=== PATIENT | male | born 2000 | race Caucasian/White ===

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

== ENCOUNTER 2024-05-31 00:43 | Emergency (ER) | payer BC, SELFPAY ==
--- NOTE | ~2024-05-31 | XR_ITS ---
CLINICAL HISTORY: rigght hand pain after punching wall 3 view right hand Comparison: None Findings: There is a transverse fracture through the distal 5th metacarpal. Moderate volar angulation of the distal fracture fragment. There is no displacement. No significant arthritic change. No erosions. No radiopaque foreign body. IMPRESSION: Angulated transverse fracture through the distal 5th metacarpal. This document has been electronically signed by: Juancarlos Rome MD on 05/31/2024 02:05:19
[2024-05-31 00:52] VITALS: BP 130/80; PULSE 95; RESP 20; TEMP 36.9; O2SAT 100; BMI 22.1
[2024-05-31] MEDS: Acetaminophen 325 MG TABLET 650 MG PO (01:41)
--- NOTE | 2024-05-31 01:41 | PC.NURSE ---
+fx on xray. Provider to bedside for splint application, pt tolerated well. Medicated per MAR, awaiting dc home.
--- NOTE | 2024-05-31 01:44 | ED.EXTPRO ---
HPI - Extremity Problem General Chief complaint: Extremity Injury, Upper Stated complaint: right hand swollen - punched the wall Time Seen by Provider: 05/31/24 01:24 Source: patient, RN notes reviewed and old records reviewed Mode of arrival: ambulatory Limitations: no limitations History of Present Illness ED Provider: Jeffy SWEENEY Narrative: 23-year-old male who is right-hand dominant presents for evaluation of right hand pain. Patient punched a wall around 10:00 p.m., 3 hours prior to arrival. He has pain over the right ulnar side of the hand His pain is 7/10 He denies any other complaints or injuries Related Data Allergies Allergy/AdvReac Type Severity Reaction Status Date / Time No Known Allergies Allergy Verified 05/31/24 00:53 Review of Systems Musculoskeletal: Musculoskeletal: Reports arthralgias, Reports joint swelling and Reports limited range of motion PMFSH Social History Social History Alcohol intake: never Patient Tobacco Use Status: Never used Tobacco Smoked in Last 30 Days: No Use of substances other than those prescribed or required for medical reasons: No Advance Directives: No Advance Directives Information Provided: Yes Do you have a plan to hurt others: No Plan Physical Exam Vital Signs: Vital Signs: Last Vital Signs Temp 98.4 F 05/31/24 00:52 Pulse 95 05/31/24 00:52 Resp 20 05/31/24 00:52 BP 130/80 05/31/24 00:52 Pulse Ox 100 05/31/24 00:52 O2 Del Method Room Air 05/31/24 00:52 BMI result Body Mass Index 22.1 Const: General: healthy appearing, comfortable, no acute distress, alert and awake Nutritional Appearance: well nourished Orientation/consciousness: patient oriented x3 HEENT: Head: Yes normocephalic and Yes atraumatic Eyes: Eyelids: Yes eyelids normal Conjunctivae: conjunctivae normal Sclerae: sclerae normal Corneas: corneas normal Pupils: Equal, round and reactive pupils present EOM: EOMs intact bilaterally Neck: Neck: Yes full ROM Resp: Effort & Inspection: normal respiratory effort, able to speak in complete sentences and not labored Skin: General skin exam: elasticity normal Neuro: General: patient oriented x3 Cranial nerves: Yes Equal, round and reactive pupils present and Yes Bilaterally intact EOM present Cognition (Neuro): normal cognition Extrem: Other: There was no edema or tenderness to the right wrist. There is good range of motion of the right wrist. There is marked edema of the right 5th metacarpal just proximal to the MCP joint. This area is exquisitely tender to palpation. He was still sensation and capillary refill is intact. Medications Administered Discontinued Medications Generic Name Dose Route Start Last Admin Trade Name Alena PRN Reason Stop Dose Admin Acetaminophen 650 mg 05/31/24 01:32 05/31/24 01:41 Acetaminophen 325 Mg Tablet PO 05/31/24 01:33 650 mg ONCE ONE Administration Medical Decision Making Medical Decision Making MDM Narrative: There is a boxer's fracture of the neck of the right 5th metacarpal, minimally displaced. See procedure note for ulnar gutter splinting. Neurovascular status is intact. Patient will be discharged to follow up with hand surgery Differential Diagnosis Differential Diagnoses: The differential diagnosis associated with the presentation includes Hand fracture Contusion Dislocation Hand sprain Hematoma Independent Interpretation I performed an independent interpretation of an: Plain X-Ray Interpretation: Minimally displaced fracture of the right 5th metacarpal neck Procedures Orthopedic Splinting/Casting Injury #1: Side: right Upper Extremity Injury Location: hand Upper Extremity Immobilizer: ulnar gutter Additional Comments: Neurovascular status intact postprocedure Discharge Plan Discharge Clinical Impression: Fracture of fifth metacarpal bone of right hand Patient Disposition: Home, Self-Care Instructions: Hand Fracture (ED) Additional Instructions: You have called a boxer's fracture. This is a fracture of the 5th metacarpal on the right hand. You had a splint applied. Keep this clean and dry. Follow-up with Orthopedics, Dr. Kathy Coon, call tomorrow to make an appointment. You may use ibuprofen/Tylenol for pain Referrals: Kathy Coon MD [Physician] - (right 5th metacarpal fracture) Stand Alone Forms: Work/School Release Print Language: Fijian
[2024-05-31 02:17] VITALS: BP 130/80; PULSE 95; RESP 20; TEMP 36.9; O2SAT 100
== END 2024-05-31 02:18 | disposition home or self-care (01) ==
PROVIDERS: Emergency Provider Internal Medicine
DX: S62.336A Displaced fracture of neck of fifth metacarpal bone, right hand, initial encounter for closed fracture (principal); W22.09XA Striking against other stationary object, initial encounter; Y93.9 Activity, unspecified; Y92.9 Unspecified place or not applicable; Y99.9 Unspecified external cause status
CPT/HCPCS: 29125; 73130; 99283; 99284

== ENCOUNTER → 2024-05-31 00:57 | Outpatient (BNV) | payer SELFPAY | PROVIDERS: Emergency Provider Internal Medicine; Visit Provider Radiology Diagnostic Radiology | DX: S62.306A Unspecified fracture of fifth metacarpal bone, right hand, initial encounter for closed fracture (principal) | CPT/HCPCS: 73130 ==

== ENCOUNTER 2024-06-04 08:41 | Emergency (ER) | payer SELFPAY ==
--- NOTE | 2024-06-04 09:49 | ED.UPPEXIN ---
HPI - Extremity Injury (Upper) General Chief Complaint: Extremity Injury, Upper Stated Complaint: wound check Related Data Allergies Allergy/AdvReac Type Severity Reaction Status Date / Time No Known Allergies Allergy Verified 06/04/24 09:54 PMFSH Social History Social History Alcohol intake: never Patient Tobacco Use Status: Never used Tobacco Advance Directives: No Advance Directives Information Provided: No Do you have a plan to hurt others: No Plan Physical Exam Vital Signs: Vital Signs: Last Vital Signs Temp 98 F 06/04/24 09:50 Pulse 76 06/04/24 09:50 Resp 16 06/04/24 09:50 BP 137/80 06/04/24 09:50 Pulse Ox 99 06/04/24 09:50 O2 Del Method Room Air 06/04/24 09:50 BMI result Body Mass Index 21.8 Course Course Course Narrative: This is a Rapid Medical Exam performed in triage by Jaida Blunt PA-C. Full HPI, ROS and PE to be performed by primary ED provider. 23 yo M w/PMHx 5th metacarpal fx presenting to the ED c/o needing new splint. States splint felt too tight last night so he removed it. Was seen & tx in our ED on 05/31/24 & Dx w/fracture after punching wall PE: +loose splint noted to RUE Plan: Needs new splint Discharge Plan Discharge Clinical Impression: Aftercare for cast or splint check or change Patient Disposition: Left Without Being Seen Interventions: LWBS Worksheet Last Done: 06/04/24 18:31 Discharge Date/Time: 06/04/24 19:22
[2024-06-04 09:50] VITALS: BP 137/80; PULSE 76; RESP 16; TEMP 36.6; O2SAT 99; BMI 21.8
== END 2024-06-04 19:22 | disposition left against medical advice (07) ==
LOC: HO.ED 19:19
PROVIDERS: Emergency Provider Emergency Medicine
DX: Z48.00 Encounter for change or removal of nonsurgical wound dressing (principal)
CPT/HCPCS: 99281

== ENCOUNTER 2024-06-07 08:21 | Outpatient (REF) | payer MEDICARE, MEDICAID, SELFPAY ==
--- NOTE | ~2024-06-07 | XR_ITS ---
EXAMINATION: XR HAND 3 OR MORE VIEWS RIGHT HISTORY: M79.641 - Pain in right hand COMPARISON: Comparison is made with the prior examination dated 05/31/2024. FINDINGS: Three views of the right hand are submitted. Osseous mineralization is normal. Again seen is a fracture of the 5th metacarpal neck. The fracture lines remain visible. The joint spaces are preserved. The soft tissues are unremarkable. XR/XR hand RT min 3V IMPRESSION: Fracture of the 5th metacarpal neck without change. Electronically signed by: Jeremy Dickinson MD 06/07/2024 10:45 AM EDT
== END 2024-06-07 08:22 | disposition home or self-care (01) ==
LOC: HO.HOSX 08:21
DX: S62.336A Displaced fracture of neck of fifth metacarpal bone, right hand, initial encounter for closed fracture (principal)
CPT/HCPCS: 26600; 73130

== ENCOUNTER 2024-06-07 09:23 | Outpatient (AMB) | payer BC, SELFPAY ==
--- NOTE | 2024-06-07 09:38 | MHC.OFFVIS ---
Vital Signs 06/07/24 09:41 Height 5 ft 9 in Weight 147 lb BMI 21.7 Handedness Right Intake Visit Reasons: FC- Right fifth metacarpal fx DOI 05/30/24 Intake Note: Raudel is a 23 year old right hand dominant male who presents today for a fracture care visit for his right hand. Patient reports that he punched a wall on 05/31/24, he [place] [facility] [place] the [place]. While at the ED he was placed in an ulnar gutter splint for a Right 5th MC Fracture. He states his pain is a 5/10 on the pain scale. Denies numbness and tingling in his fingers. Patient has tried tylenol with relief. Allergies No Known Allergies Allergy (Verified 06/07/24 09:40) HPI HPI FC- Right fifth metacarpal fx DOI 05/30/24: Details: Raudel is a 23 year old right hand dominant male who presents today for a fracture care visit for his right hand. Patient reports that he punched a wall on 05/31/24, he was [place] [facility] [place] the [place]. While at the ED he was placed in an ulnar gutter splint for a Right 5th MC Fracture. He states his pain is a 5/10 on the pain scale. Denies numbness and tingling in his fingers. Patient has tried tylenol with relief. 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 Neuro: Normal sensation of the tips of all digits of the right hand at this time Vascular: Cap refill brisk Pain: Mild to moderate tenderness to palpation of the right 5th metacarpal neck in the area of the fracture ROM: Patient was able to flex and extend the 1st through 4th digits of the right hand without difficulty Skin: No lacerations or abrasions. General: Resolving ecchymosis No erythema, or evidence of infection. Psych: Appears grossly normal Affect normal Attitude cooperative Office Procedures AMB Fracture Care Details: Right 5th metacarpal neck fracture Fracture Billing Code: Fracture Billing Code Casting/Splints 64020-Rxmf/Wrist Cast Application Procedure code (CPT) selection complete Results Reviewed Results Reviewed: X-rays obtained in the office today and independently reviewed by me, Hans Griffith PA-C, demonstrate minimally displaced fracture of the right 5th metacarpal neck. Assessment & Plan Assessment & Plan (1) Fracture of fifth metacarpal bone of right hand: Code(s): S62.306A - Unspecified fracture of fifth metacarpal bone, right hand, initial encounter for closed fracture Category: Medical Plan 1. Minimally displaced right 5th metacarpal neck fracture Date of injury 05/30/24 Patient is educated about this condition Patient was educated about the typical recovery course At this time, patient was informed that he will require no surgical intervention, as his fracture is minimally displaced Patient was placed into a short-arm ulnar gutter cast Patient was educated on proper cast care and precautions Patient was educated he will have a strict 2 lb weight limit in the right hand, and must keep the cast clean, dry, intact Patient states understanding of this and is amenable to this plan Patient will follow-up in 3 weeks, out of cast, with repeat x-rays, sooner with any acute concerns Orders: Orders XR hand RT min 3V Today M79.641 - Pain in right hand Coding Level of Care Code New Pt Level 3 (00944) Diagnoses Fracture of fifth metacarpal bone of right hand S62.306A CPT Codes Fracture Care - Fracture Billing Code: Fracture Billing Code ([id number]) Casting - CPT: 24610-Vcke/Wrist Cast Application ([id number])
[2024-06-07 09:41] VITALS: BMI 21.7
== END 2024-06-07 09:52 | disposition home or self-care (01) ==
LOC: HO.HOS 09:24
DX: S62.306A Unspecified fracture of fifth metacarpal bone, right hand, initial encounter for closed fracture (principal)
CPT/HCPCS: 26600; 99203

== ENCOUNTER → 2024-06-07 09:28 | Outpatient (BNV) | payer BC, SELFPAY | PROVIDERS: Visit Provider Radiology Diagnostic Radiology | DX: M79.641 Pain in right hand (principal) | CPT/HCPCS: 73130 ==

== ENCOUNTER 2024-07-06 08:14 | Outpatient (REF) | payer BC, SELFPAY ==
--- NOTE | ~2024-07-06 | XR_ITS ---
EXAMINATION: XR HAND, RIGHT CLINICAL INFORMATION: M79.641 - Pain in right hand COMPARISON: June 07, 2024. TECHNIQUE: PA, lateral, and oblique views of the right hand. FINDINGS: Persistent lucency and the fragment fractures of the distal fifth metacarpal. Persistent volar angulation of the head of the fifth metacarpal. No callus formation. Degenerative changes in the greater carpal joint. Carpal bones are intact. Phalanges are intact with normal alignment. XR/XR hand RT min 3V IMPRESSION: Nonhealing volar angulated fracture, distal fifth metacarpal. Electronically signed by: Wood Rodriguez MD 07/10/2024 10:29 AM EDT
--- OUTSIDE RECORDS SUMMARY | 2024-07-06 08:18 | XMS_ITS | Encounter Summary ---
Author Organization [facility] Address [address] [place] [phone] Phone Care Team Providers Care Preformer Impregnated Fabrics Name Role Phone Alena Stewart DO Primary Care Provider [phone] Encounter Details Date Type Department Care Team (Late st Contact Info) Description 12/04/2012 Documentation [facility] [place] Family Medicine [address] [place] [address] Family Medicine, Physician [address] [place], [place] [phone] Social History Tobacco Use Types Packs/Day Years Used Date Smoking Tobacco: Never Assessed Sex and Gender Information Value Date Recorded Sex Assigned at Not on file Legal Sex Male 4:51 PM EDT Gender Identity Not on file Sexual Orientation Not on file documented as of this encounter Plan of Treatment Not on file documented as of this encounter Visit Diagnoses Not on filedocumented in this encounter Care Teams Preformer Impregnated Fabrics Relationship Specialty Start Date End Date Alena Stewart DO [address] [place] [address] PCP - General 10/22/16 04/22/22 documented as of this encounter
--- OUTSIDE RECORDS SUMMARY | 2024-07-06 08:18 | XMS_ITS | Encounter Summary ---
Author Organization [facility] Address [address] [place] [address] Phone Care Team Providers Care Corporate Banking Officer Name Role Phone Alena Stewart DO Primary Care Provider [phone] Encounter Details Date Type Department Care Team (Late st Contact Info) Description 12/04/2012 [place] [facility] [place] [address] [place] [address] Family Medicine, Physician [address] [place], [place] [phone] Social History Tobacco Use Types Packs/Day Years [...] on filedocumented in this encounter Care Teams Corporate Banking Officer Relationship Specialty Start Date End Date Alena Stewart DO [address] [place] [address] PCP - General 10/22/16 04/22/22 documented as of this encounter
--- OUTSIDE RECORDS SUMMARY | 2024-07-06 08:18 | XMS_ITS | Encounter Summary ---
Author Organization [facility] Address [address] [place] [address] Phone Care Team Providers Care Automotive Machinist Name Role Phone Alena Stewart DO Primary Care Provider [phone] Encounter Details Date Type Department Care Team (Late st Contact Info) Description 12/04/2012 [place] [facility] [place] [address] [place] [address] Family Medicine, Physician [address] [place], [place] [phone] Social History Tobacco Use Types Packs/Day Years [...] on filedocumented in this encounter Care Teams Automotive Machinist Relationship Specialty Start Date End Date Alena Stewart DO [address] [place] [address] PCP - General 10/22/16 04/22/22 documented as of this encounter
--- OUTSIDE RECORDS SUMMARY | 2024-07-06 08:18 | XMS_ITS | Encounter Summary ---
Author Organization [facility] Address [address] [place] [address] Phone Care Team Providers Care Feeder Operator Automatic Name Role Phone Alena Stewart DO Primary Care Provider [phone] Encounter Details Date Type Department Care Team (Late st Contact Info) Description 01/29/2016 Documentation [facility] [place] [address] [place] [address] Family Medicine, Physician [address] [place], [place] [phone] Social History Tobacco Use Types Packs/Day Years [...] on filedocumented in this encounter Care Teams Feeder Operator Automatic Relationship Specialty Start Date End Date Alena Stewart DO [address] [place] [address] PCP - General 10/22/16 04/22/22 documented as of this encounter
--- OUTSIDE RECORDS SUMMARY | 2024-07-06 08:18 | XMS_ITS | Clinical Summary ---
Author Organization [facility] Address [address] [place] [address] Phone Care Team Providers Care Physician Assistant Surgery Name Role Phone Unavailable Primary Care Provider Unavailabl e Immunizations Immunization Administration Dates Next Due DTaP 5 03/08/2008, 6,03/30/2002, 002,2001 Hep B, ped/adol 05/17/2002,2001,2001 Hib (HbOC) 01/28/2003,01/19/2002,2001 IPV 03/08/2008, 6,01/19/2002, 002 Influenza, injectable, trivalent 03/08/2008,07/2006 Influenza, intranasal, quadrivalent 12/01/2012 MMR 04/09/2005 MMRV 01/16/2007 Meningococcal Conj (Menactra) MCV4P 12/01/2012 Pneumococcal Conjugate 09/06/2002,2002,01/19/2002, 002 Tdap 12/01/2012 Varicella 09/06/2002 Family History Relation Name Status Comments Brother 1 Alive Brother: Asthma , Asthma, LEAD POISONING Brother 2 Alive Brother: Asthma , Asthma, LEAD POISONING Father Alive Father: Alive a nd well Mother Alive Mother: Alive a nd well Other Family history of Hypertension, No family history of Developmental dislocation of hip, No family history of ADD/ADHD, No family history of Sudden /[place] under age 55, Family history of CVA (Stroke), Family history of Migraines, Family history of Obesity, Family history of Cancer, unknown, No family history of Deafness, No family history of Thrombophilia, No family history of Strabismus, Family history of Seizure disorder, Family history of Diabetes mellitus, Family history of Hyperlipidemia, Family history of Diabetes mellitus, Family history of Heart disease Sister 1 Alive Sister: Alive a nd well, Alive and well, Asthma Sister 2 Alive Sister: Alive a nd well, Alive and well, Asthma Social History Tobacco Use Types Packs/Day Years Used Date Smoking Tobacco: Never Assessed Sex and Gender Information Value Date Recorded Sex Assigned at Not on file Legal Sex Male 4:51 PM EDT Gender Identity Not on file Sexual Orientation Not on file Last Filed Vital Signs Vital Sign Reading Time Taken Comments Blood Pressure 100/58 12/01/2012 12:00 AM EDT Pulse - - Temperature - - Respiratory Rate - - Oxygen Saturation - - Inhaled Oxygen Concentration - - Weight 44.5 kg (98 lb) 12/01/2012 12:00 AM EDT Height 146.1 cm (4' 9.5 ) 12/01/2012 12:00 AM ED T Body Mass Index 20.84 12/01/2012 12:00 AM EDT Plan of Treatment Health Maintenance Due Date Last Done Comments HPV Vaccines (1 - Male 3-dose series) 2016 Men B Vaccine (1 of 2 - Standard) 2017 DTaP,Tdap,and Td Vaccines (7 - Td or Tdap) 12/01/2022 12/01/2012, 03/08/2008, 04/09/2005, Additional history exists Influenza Vaccines (#1) 2023 12/02/19 13, 03/08/2008, 01/16/2007 COVID-19 Vaccine ( - season) 2023 Hepatitis B Vaccines Completed 05/17/2002, 2001, 2001 Pneumococcal Vaccine Completed 09/06/2002, 03/30/2002, 01/19/2002, Additional history exists HIB Vaccines Completed 01/28/2003, 10/2001, 2001 MMR Vaccines Completed 01/16/2007, 04/09/2005 Varicella Vaccines Completed 01/16/2007, 09/06/2002 IPV Vaccines Completed 03/08/2008, 03/15, 01/19/2002, Additional history exists Meningococcal Vaccine Aged Out 12/01/2012 No seda luis eligible based on patient's age to complete this topic Hepatitis A Vaccines Aged Out No long er eligible based on patient's age to complete this topic
--- OUTSIDE RECORDS SUMMARY | 2024-07-06 08:18 | XMS_ITS | Encounter Summary ---
Author Organization [facility] Address [address] [place] [address] Phone Care Team Providers Care Bronze Chaser Name Role Phone Alena Stewart DO Primary Care Provider [phone] Encounter Details Date Type Department Care Team (Late st Contact Info) Description 10/28/2016 Conversion Encounter [facility] [facility] [place] [address] [place] [address] Social History Tobacco Use Types Packs/Day Years [...] on filedocumented in this encounter Care Teams Bronze Chaser Relationship Specialty Start Date End Date Alena Stewart DO [address] [place] [address] PCP - General 10/22/16 04/22/22 documented as of this encounter
== END 2024-07-06 08:15 | disposition home or self-care (01) ==
LOC: HO.HOSX 08:14
DX: S62.306G Unspecified fracture of fifth metacarpal bone, right hand, subsequent encounter for fracture with delayed healing (principal); M79.641 Pain in right hand
CPT/HCPCS: 73130

== ENCOUNTER 2024-07-06 14:05 | Outpatient (AMB) | payer BC, SELFPAY ==
--- NOTE | 2024-07-06 14:19 | A.OFFVIS_ITS ---
Vital Signs 07/06/24 14:26 Height 5 ft 9 in Weight 147 lb BMI 21.7 Intake Visit Reasons: FC- Rt fifth metacarpal fx DOI 05/30/24 f/u Intake Note: Raudel 23 yr old right hand dominant male presents today for a fractures care visit s/p ED visit on 05/31/24. States he punched a wall due to feeling angry and injured his small finger. Cats removed and xrays updated in office. Currently states his hand feels stiff and pain has improved. He is able to make a close fist but has a little of limited ROM in his small finger. Allergies No Known Allergies Allergy (Verified 07/06/24 14:25) HPI HPI FC- Rt fifth metacarpal fx DOI 05/30/24 f/u: Details: Raudel 23 yr old right hand dominant male presents today for a fractures care visit s/p ED visit on 05/31/24. States he punched a wall due to feeling angry and injured his small finger. Cast removed and xrays updated in office. Currently states his hand feels stiff and pain has improved. He is able to make a close fist but has a little of limited ROM in his small finger. No other acute complaints or concerns at this time. Denies numbness or tingling in the right upper extremity. 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 Neuro: Normal sensation of the tips of all digits of the right hand at this time Vascular: Cap refill brisk Pain: No tenderness to palpation of the right 5th metacarpal neck in the area of the fracture ROM: Patient was able to make a closed fist and extend all digits of the right hand fully, reports some very minor stiffness in the right small finger when doing so Skin: No lacerations or abrasions. General: Ecchymosis resolved No erythema, or evidence of infection. Psych: Appears grossly normal Affect normal Attitude cooperative Results Reviewed Results Reviewed: X-rays obtained in the office today and independently reviewed by , Hans Griffith PA-C, demonstrate minimally displaced fracture of the right 5th metacarpal neck with evidence of interval bony healing. Assessment & Plan Assessment & Plan (1) Fracture of fifth metacarpal bone of right hand: Code(s): S62.306A - Unspecified fracture of fifth metacarpal bone, right hand, initial encounter for closed fracture Category: Medical Plan 1. Minimally displaced right 5th metacarpal neck fracture Date of injury 05/30/24 Patient is educated about this condition Patient was educated about the typical recovery course At this time, patient was informed that he will require no surgical intervention, as his fracture is minimally displaced Provided with a Velcro wrist splint to wear with daytime activities as well as luther tape to use whenever he is awake Patient was educated he will have a strict 2 lb weight limit in the right hand, and must keep the cast clean, dry, intact Patient states understanding of this and is amenable to this plan Patient will follow-up in 3 weeks, out of cast, with repeat x-rays, sooner with any acute concerns Orders: Orders XR hand RT min 3V 07/06/24 M79.641 - Pain in right hand Coding Level of Care Code Global (41399) Diagnoses Fracture of fifth metacarpal bone of right hand S62.306A
[2024-07-06 14:26] VITALS: BMI 21.7
--- OUTSIDE RECORDS SUMMARY | 2024-07-06 14:49 | XMS_ITS | Encounter Summary ---
Author Organization [facility] Address [address] [place] [address] Phone Care Team Providers Care Merchandise Processor Name Role Phone Alena Stewart DO Primary Care Provider [phone] Encounter Details Date Type Department Care Team (Late st Contact Info) Description 12/04/2012 Documentation [facility] [place] Family Medicine [address] [place] [address] Family Medicine, Physician [address] [place], [place] [phone] Social History Tobacco Use Types Packs/Day Years [...] on filedocumented in this encounter Care Teams Merchandise Processor Relationship Specialty Start Date End Date Alena Stewart DO [address] [place] [address] PCP - General 10/22/16 04/22/22 documented as of this encounter
--- OUTSIDE RECORDS SUMMARY | 2024-07-06 14:49 | XMS_ITS | Clinical Summary ---
Author Organization [facility] Address [address] [place] [address] Phone Care Team Providers Care Electrical Tech Name Role Phone Unavailable Primary Care Provider [...] of ADD/ADHD, No family history of Sudden /[place] under age 55, Family history of CVA [...]
--- OUTSIDE RECORDS SUMMARY | 2024-07-06 14:49 | XMS_ITS | Encounter Summary ---
Author Organization [facility] Address [address] [place] [address] Phone Care Team Providers Care Silk Spreader Name Role Phone Alena Stewart DO Primary Care Provider [phone] Encounter Details Date Type Department Care Team (Late st Contact Info) Description 12/04/2012 Documentation [facility] [place] [address] [place] [address] Family Medicine, Physician [address] [place], [place] [phone] Social History Tobacco Use Types Packs/Day Years [...] on filedocumented in this encounter Care Teams Silk Spreader Relationship Specialty Start Date End Date Alena Stewart DO [address] [place] [address] PCP - General 10/22/16 04/22/22 documented as of this encounter
--- OUTSIDE RECORDS SUMMARY | 2024-07-06 14:49 | XMS_ITS | Encounter Summary ---
Author Organization [facility] Address [address] [place] [address] Phone Care Team Providers Care Solar Electric Practitioner Name Role Phone Alena Stewart DO Primary Care Provider [phone] Encounter Details Date Type Department Care Team (Late st Contact Info) Description 10/28/2016 Conversion Encounter [facility] [place] [address] [place] [address] Social History Tobacco Use Types Packs/Day Years [...] on filedocumented in this encounter Care Teams Solar Electric Practitioner Relationship Specialty Start Date End Date Alena Stewart DO [address] [place] [address] PCP - General 10/22/16 04/22/22 documented as of this encounter
--- OUTSIDE RECORDS SUMMARY | 2024-07-06 14:49 | XMS_ITS | Encounter Summary ---
Author Organization [facility] Address [address] [place] [address] Phone Care Team Providers Care Rail Setter Name Role Phone Alena Stewart DO Primary Care Provider [phone] Encounter Details Date Type Department Care Team (Late st Contact Info) Description 01/29/2016 Documentation [facility] [place] Family Medicine [address] [place] [address] Family Medicine, Physician [address] [place], [place] [phone] Social History Tobacco Use Types Packs/Day Years [...] on filedocumented in this encounter Care Teams Rail Setter Relationship Specialty Start Date End Date Alena Stewart DO [address] [place] [address] PCP - General 10/22/16 04/22/22 documented as of this encounter
--- OUTSIDE RECORDS SUMMARY | 2024-07-06 14:49 | XMS_ITS | Encounter Summary ---
Author Organization [facility] Address [address] [place] [address] Phone Care Team Providers Care Road Gang Supervisor Name Role Phone Alena Stewart DO Primary Care Provider Encounter Details Date Type Department Care Team (Late st Contact Info) Description 12/04/2012 Documentation [facility] [place] Family Medicine [address] [place] [address] Family Medicine, Physician [address] [place], [place] [phone] Social History Tobacco Use Types Packs/Day Years [...] on filedocumented in this encounter Care Teams Road Gang Supervisor Relationship Specialty Start Date End Date Alena Stewart DO [address] [place] [address] PCP - General 10/22/16 04/22/22 documented as of this encounter
== END 2024-07-06 14:54 | disposition home or self-care (01) ==
LOC: HO.HOS 14:05
DX: S62.306A Unspecified fracture of fifth metacarpal bone, right hand, initial encounter for closed fracture (principal)
CPT/HCPCS: 99024

== ENCOUNTER → 2024-07-06 14:08 | Outpatient (BNV) | payer BC, SELFPAY | PROVIDERS: Visit Provider Radiology Diagnostic Radiology | DX: M79.641 Pain in right hand (principal) | CPT/HCPCS: 73130 ==

== ENCOUNTER 2024-08-03 07:57 | Outpatient (REF) | payer BC, SELFPAY ==
--- NOTE | ~2024-08-03 | XR_ITS ---
EXAMINATION: XR HAND 3 OR MORE VIEWS RIGHT HISTORY: M79.641 - Pain in right hand COMPARISON: Comparison is made with the prior examination dated 07/06/2024. FINDINGS: Three views of the right hand are submitted. Osseous mineralization is normal. Again seen is a comminuted fracture of the neck of the 5th metacarpal. The fracture lines are less well visualized, consistent with healing. The joint spaces are preserved. The soft tissues are unremarkable. XR/XR hand RT min 3V IMPRESSION: Healing comminuted fracture of the neck of the 5th metacarpal. Electronically signed by: Jeremy Dickinson MD 08/03/2024 01:39 PM EDT
--- OUTSIDE RECORDS SUMMARY | 2024-08-03 08:00 | XMS_ITS | Encounter Summary ---
Author Organization [facility] Address [address] [place] [address] Phone Care Team Providers Care Visitor Service Assistant Name Role Phone Alena Stewart DO Primary Care Provider [phone] Encounter Details Date Type Department Care Team (Late st Contact Info) Description 12/04/2012 Documentation [facility] [place] [address] [place] [address] Family Medicine, Physician [address] [place], [place] [phone] Social History Tobacco Use Types Packs/Day Years [...] on filedocumented in this encounter Care Teams Visitor Service Assistant Relationship Specialty Start Date End Date Alena Stewart DO [address] [place] [address] PCP - General 10/22/16 04/22/22 documented as of this encounter
== END 2024-08-03 07:58 | disposition home or self-care (01) ==
LOC: HO.HOSX 07:57
DX: M79.641 Pain in right hand (principal)
CPT/HCPCS: 73130

== ENCOUNTER 2024-08-03 13:27 | Outpatient (AMB) | payer BC, SELFPAY ==
--- NOTE | 2024-08-03 13:35 | MHC.OFFVIS ---
Vital Signs 08/03/24 13:37 Height 5 ft 9 in Weight 150 lb BMI 22.1 Handedness Right Intake Visit Reasons: OV- Rt fifth metacarpal fx DOI 05/30/24 Intake Note: Raudel is a 23 year old right hand dominant male who presents today for a follow up visit for his fracture of fifth metacarpal bone of right hand s/p punching wall DOI: 05/30/24. Patient reports his hand feels good. Denies any pain, numbness and tingling. Denies any stiffness in wrist or digits. He is able to make a full closed fist and squeeze. Needs a work note for today's appointment to update any restrictions if necessary. Allergies No Known Allergies Allergy (Verified 08/03/24 13:37) HPI HPI OV- Rt fifth metacarpal fx DOI 05/30/24: Details: Raudel is a 23 year old right hand dominant male who presents today for a follow up visit for his fracture of fifth metacarpal bone of right hand s/p punching wall DOI: 05/30/24. Patient reports his hand feels good. Denies any pain, numbness and tingling. Denies any stiffness in wrist or digits. He is able to make a full closed fist and squeeze. Needs a work note for today's appointment to update any restrictions if necessary. 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 Over previous assessments, continued healing has been noted on imaging, with specific advice given on reducing strain through the use of a wrist splint and luther taping. There has been a marked improvement as reported by the patient: he can now make a fist without difficulty and there is no tenderness at the site of fracture. The patient has been advised to gradually increase weight lifting, avoiding heavy lifting and full basketball play over several weeks. 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 Review of Systems - Musculoskeletal: Reports ability to make a fist, some resistance when extending hand forward; denies tenderness, redness, or swelling in the right hand. Systems reviewed and are negative except as per HPI and below Physical Exam - Musculoskeletal- Observed ability to make a fist without apparent difficulty. Mild persistent bend noted on right fifth metacarpal. Full range of motion in lateral and oblique positions demonstrated in-session. No signs of redness or swelling. Results - Imaging: Recent x-ray review shows significant healing of the right fifth metacarpal fracture. Residual fracture line visible but less prominent than previous imaging. Procedure Plan To address the right fifth metacarpal fracture, the patient will discontinue the wrist splint while continuing luther taping during daily activities. Incremental increases in lifting capacity will be implemented, reaching normal activity levels within four weeks. Avoidance of full sports participation is advised until fully healed. No further occupational therapy is recommended, and no further follow-up is scheduled unless clinically indicated. Patient was informed and verbally consented to the use of an ambient scribe for clinic note documentation during this visit. Discussion Notes I discussed the favorable progress noted on repeat imaging displaying significant healing of the right fifth metacarpal fracture. I reviewed the progression plan for returning to weight-lifting and sports activities. I have advised against occupational therapy, considering the excellent recovery. I reassured the patient about the slight bend remaining in the fracture site and conveyed that strenuous physical activity is permissible by gradually increasing limits over four weeks. 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 Consent discussions were not applicable as no procedures were conducted during this particular visit. Patient Instructions - Discontinue using the wrist splint. - Continue luther tapping during daytime activities. - Gradually increase how much you lift: start with 5 pounds for the next two weeks, then increase up to 15 pounds. - Avoid playing basketball and other sports for the next few weeks. - Resume work duties without restrictions. - Contact me if you experience any new or worsening symptoms. Orders: Orders XR hand RT min 3V Today M79.641 - Pain in right hand Coding Level of Care Code Global (87269) Diagnoses Fracture of fifth metacarpal bone of right hand S62.306A
[2024-08-03 13:37] VITALS: BMI 22.1
== END 2024-08-03 13:57 | disposition home or self-care (01) ==
LOC: HO.HOS 13:27
DX: S62.306A Unspecified fracture of fifth metacarpal bone, right hand, initial encounter for closed fracture (principal)
CPT/HCPCS: 99024

== ENCOUNTER → 2024-08-03 13:29 | Outpatient (BNV) | payer BC, SELFPAY | PROVIDERS: Visit Provider Radiology Diagnostic Radiology | DX: M79.641 Pain in right hand (principal); S62.336D Displaced fracture of neck of fifth metacarpal bone, right hand, subsequent encounter for fracture with routine healing | CPT/HCPCS: 73130 ==